=== PATIENT | female | born 1960 | race Hispanic/Latino ===

== ENCOUNTER 2019-03-22 22:38 | Emergency (ER) | payer OTHER ==
[2019-03-22] MEDS ORDERED: ONDANSETRON HCL 4 MG/2 ML VIAL ONE (23:04)
[2019-03-22] MEDS ORDERED: SODIUM CHLORIDE 0.9% 1000ML 1,000 ML IV ONE (23:05)
[2019-03-22 23:21] LABS: BASOPHILS % (AUTO) 1.5 % (0.0-5.0); EOSINOPHILS % (AUTO) 3.2 % (0.0-8.0); LYMPHOCYTES % (AUTO) 43.3 % (21.0-51.0); MEAN CORPUSCULAR HEMOGLOBIN 29.1 pg (27.0-33.0); MEAN CORPUSCULAR HGB CONC 32.7 g/dL (32.0-36.0); MEAN CORPUSCULAR VOLUME 88.9 fL (79-99); MONOCYTES % (AUTO) 9.6 % (3.0-13.0); NEUTROPHILS % (AUTO) 42.3 % (40.0-77.0); PLATELET COUNT (AUTO) 217 K/uL (130-400); RED BLOOD CELL COUNT(AUTO) 4.16 MIL/uL (4.00-5.50); RED CELL DISTRIBUTION WIDTH 13.2 % (11.0-15.5); WHITE BLOOD COUNT (AUTO) 6.9 K/uL (4.8-10.8)
[2019-03-22 23:34] LABS: CREATININE 0.7 mg/dL (0.5-1.5); POTASSIUM 3.7 mmol/L (3.5-5.1)
[2019-03-22 23:38] LABS: ALBUMIN 3.5 g/dL (3.5-5.0); BILIRUBIN,TOTAL 0.4 mg/dL (0.2-1.0); TOTAL PROTEIN, SERUM 6.9 g/dL (6.0-8.3)
[2019-03-22] MEDS ORDERED: KETOROLAC TROMETHAMINE 30MG/ML ONE (23:50)
[2019-03-23 00:21] LABS: APPEARANCE,URINE Clear (CLEAR); BILIRUBIN,URINE Negative (NEGATIVE); COLOR,URINE Yellow (YELLOW); GLUCOSE, URINE (UA) Negative (NEGATIVE); KETONES,URINE Negative (NEGATIVE); LEUKOCYTE ESTERASE ,URINE Trace (NEGATIVE); NITRATE,URINE Negative (NEGATIVE); OCCULT BLOOD,URINE Negative (NEGATIVE); PH,URINE 5.5 (5.0-8.0); PROTEIN,URINE Negative (NEGATIVE); UROBILINOGEN,URINE 0.2 mg/dL (0.2-1.0)
[2019-03-23 00:55] LABS: BACTERIA,URINE None Seen /HPF (None Seen); RBC,URINE 0-1 /HPF (0-1); WBC,URINE 0-1 /HPF (0-1)
== END 2019-03-23 00:57 | disposition home or self-care (01) ==
LOC: EDH 22:38
DX: K59.00 Constipation, unspecified (principal); K46.9 Unspecified abdominal hernia without obstruction or gangrene; E78.00 Pure hypercholesterolemia, unspecified; Z98.51 Tubal ligation status
CPT/HCPCS: 36415; 74176; 80053; 81001; 82150; 82550; 83690; 84484; 85025; 93005; 96374; 96375; 99285; J1885; J2405; J7030

== ENCOUNTER 2021-01-17 11:54 | Emergency (ER) | payer OTHER ==
[~2021-01-17] VITALS: Ht 149.9 cm; Wt 69.4 kg
[2021-01-17] MEDS ORDERED: DIAZEPAM 5 MG TABLET PO ONE (12:30)
[2021-01-17] MEDS ORDERED: HYDROCODONE/ACETAMINOPHEN 10/325 MG TAB PO ONE (12:30)
[2021-01-17] MEDS ORDERED: KETO10 PO (14:09)
[2021-01-17] MEDS ORDERED: CYCL10TA16 PO (14:09)
[2021-01-17 14:20] VITALS: BP 128/72
== END 2021-01-17 14:37 | disposition home or self-care (01) ==
LOC: EDH 11:54
DX: M51.16 Intervertebral disc disorders with radiculopathy, lumbar region (principal); M51.26 Other intervertebral disc displacement, lumbar region; M47.26 Other spondylosis with radiculopathy, lumbar region; E78.00 Pure hypercholesterolemia, unspecified; Z79.1 Long term (current) use of non-steroidal anti-inflammatories (NSAID)
CPT/HCPCS: 72131